=== PATIENT | female | born 2005 | race African-American/Black ===

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

== ENCOUNTER 2024-03-09 08:16 | Emergency (ER) | payer BC | END 2024-03-09 09:06 | disposition home or self-care (01) | LOC: BURERS 08:16 | DX: L02.215 Cutaneous abscess of perineum (principal) | CPT/HCPCS: 99282 ==

== ENCOUNTER 2024-12-29 09:33 | Emergency (ER) | payer BC, SELFPAY | END 2024-12-29 09:56 | disposition home or self-care (01) | LOC: BURERS 09:33 | DX: F10.129 Alcohol abuse with intoxication, unspecified (principal); K29.20 Alcoholic gastritis without bleeding | CPT/HCPCS: 99283; Q0162 ==

== ENCOUNTER 2025-03-30 08:29 | Emergency (ER) | payer BC ==
[2025-03-30 08:52] LABS: Glucose, Urine (Dipstick) Negative (Negative); Leukocyte Negative (Negative); Protein, Urine (Dipstick) 30 mg/dL (Neg-Trace); Specific Gravity, Urine Greater/Equal 1.030 (1.005-1.030)
[2025-03-30 09:00] LABS: Pregnancy Test - Urine (BHCG) Negative (Negative); Pregu Control Background? CLEAR/WHITE (CLR/WHITE); Pregu Control Bar Appear? YES (CONTROL BAR)
[2025-03-30 09:01] LABS: Bacteria/HPF None Seen HPF (None Seen); CAUTI Indications for Culture Pelvic or flank pain; RBC/HPF None Seen HPF (0-3); WBC/HPF 0-3 HPF (0-3)
[2025-03-30 09:02] LABS: Urine Culture Reflex No No
[2025-03-30 09:05] LABS: ALT (SGPT) 8 U/L (Less than 34); AST (SGOT) 18 U/L (11-34); Albumin 4.8 g/dL (3.1-4.5); Alkaline Phosphatase 54 U/L (40-100); Anion Gap 20 mmol/L (10-20); BUN (Urea Nitrogen) 10 mg/dL (7.0-18.7); Bilirubin, Total 0.6 mg/dL (0.3-1.2); Calc. Creatinine Clearance 0 mL/min (70-130); Calcium 9.3 mg/dL (7.8-10.44); Carbon Dioxide 18 mmol/L (22-29); Chloride 106 mmol/L (98-107); Globulin 3.0 g/dL (2.4-3.5); Glucose 127 mg/dL (70-105); Lipase 7 U/L (8-78); Potassium 4.3 mmol/L (3.5-5.1); Sodium 140 mmol/L (136-145)
[2025-03-30 09:18] LABS: Hematocrit 43.7 % (36.0-47.0); Hemoglobin 14.8 g/dL (12.0-16.0); MDiff Complete? YES; Mean Corpuscular Hemoglobin 28.4 pg (25.0-35.0); Mean Corpuscular Volume 84.2 fl (78.0-98.0); Platelet Count 466 10x3/uL (130-400); Red Blood Cell (RBC) Count 5.19 mill/uL (4.00-5.20); White Blood Cell (WBC) Count 14.0 10x3/uL (4.8-10.8)
[2025-03-30 09:23] LABS: Cocaine Metabolite Screen Negative (Negative); THC/Cannabinoid Screen PRELIM POSITIVE (Negative); Tricyclic Screen Negative (Negative)
== END 2025-03-30 09:35 | disposition home or self-care (01) ==
LOC: BURERS 08:29
DX: F12.10 Cannabis abuse, uncomplicated (principal); R10.84 Generalized abdominal pain; R11.2 Nausea with vomiting, unspecified
CPT/HCPCS: 36415; 80053; 80306; 81001; 81025; 83690; 85025; 96374; J1630